=== PATIENT | male | born 1990 | race Caucasian/White ===

== ENCOUNTER 2019-04-01 19:12 | Emergency (ER) | payer SELFPAY ==
[~2019-04-01] VITALS: Ht 182.9 cm; Wt 104.5 kg
[2019-04-01 19:18] VITALS: BP 133/62; TEMP 98.6
[2019-04-01 20:14] VITALS: PULSE 73
== END 2019-04-01 20:07 | disposition home or self-care (01) ==
LOC: COL.ER 19:12
DX: S01.01XA Laceration without foreign body of scalp, initial encounter (principal); Z88.0 Allergy status to penicillin; Z87.891 Personal history of nicotine dependence; W25.XXXA Contact with sharp glass, initial encounter; Y92.59 Other trade areas as the place of occurrence of the external cause

== ENCOUNTER 2019-04-08 19:56 | Emergency (ER) | payer SELFPAY ==
[2019-04-08 20:01] VITALS: BP 128/66; PULSE 67; TEMP 98.2
== END 2019-04-08 20:03 | disposition home or self-care (01) ==
LOC: COL.ER 19:56
DX: S01.01XD Laceration without foreign body of scalp, subsequent encounter (principal)